=== PATIENT | male | born 1980 | race African-American/Black ===

== ENCOUNTER 2019-11-16 15:45 | Emergency (ER) | payer BC ==
[~2019-11-16] VITALS: Ht 180.3 cm; Wt 108.9 kg
[2019-11-16 16:12] LABS: *BILIRUBIN,URIN NEGATIVE (NEGATIVE); *BLOOD, URINE NEGATIVE (NEGATIVE); *CLARITY,URINE CLEAR (CLEAR); *COLOR,URINE YELLOW (YELLOW); *KETONES,URINE NEGATIVE (NEGATIVE); LEUKOCYTE ESTERASE ,URINE NEGATIVE (NEGATIVE); NITRITE, URINE NEGATIVE (NEGATIVE); UGLUCOSE NEGATIVE (NEGATIVE)
[2019-11-16 16:22] LABS: MUCUS,URINE FEW /LPF (0-FEW)
[2019-11-16] MEDS ORDERED: AZITHROMYCIN 250 MG TABLET PO ONE (16:30)
[2019-11-16] MEDS ORDERED: CEFTRIAXONE 500 MG VIAL IM ONE (16:30)
[2019-11-16 16:40] VITALS: BP 135/88
--- NOTE | 2019-11-16 16:40 | NUR ---
Patient discharged to home in stable conditon. Written and verbal after care instructions given. Patient verbalizes understanding of instructions. Patient ambulated with stable gait.
== END 2019-11-16 16:41 | disposition home or self-care (01) ==
LOC: ER 15:45
DX: N34.2 Other urethritis (principal)
CPT/HCPCS: 81000; 81001; 87086; 96372; 99283; J0696; J3490; A4663; Q0144